=== PATIENT | male | born 1960 | race Caucasian/White ===

== ENCOUNTER 2017-02-22 17:46 | Emergency (ER) | payer MEDICARE, MEDICAID ==
--- NOTE | 2017-02-28 17:58 | ER ---
ADMIT: 02/22/2017 RM/LOC: [facility] MR#: [id number] [id number] [place], [place] [address] [place], [place] [id number] Emergency Room Report SEX: M AGE: 56 : 1960 CORRECTED: 02/24/2017 1115 DJS DATE: 02/22/2017 CHIEF COMPLAINT: Shortness of breath. HISTORY OF PRESENT ILLNESS: This is a 56-year-old male, who comes to us from [facility] with reports that he has increased confusion and weakness. Conversing with the patient, he states he is feeling fine. Denies any fever, chills, chest pain, cough, or leg swelling. Denies any recent illness. Does have a past history of diabetes, hypertension, stroke, history of aspiration pneumonia, chronically on tube feeds from this as well as anemia. He has a history of metabolic encephalopathy as well as schizophrenia. COURSE IN EMERGENCY ROOM: The patient was seen and examined. PHYSICAL EXAMINATION: VITAL SIGN: He is afebrile and nontoxic. GENERAL: In no acute distress. RESPIRATORY: He does have some decreased air movement. Prolonged expiration. No wheezes or rhonchi. HEART: Regular rate and rhythm. ABDOMEN: Soft and nontender. SKIN: Warm and dry. EXTREMITIES: Nontender. No pedal edema. NEUROLOGICAL: He is alert. He is disoriented secondary to schizophrenia and metabolic encephalopathy. LABORATORY DATA: I did get lab work on him today. White count 5.2, hemoglobin 10.5, hematocrit 31.5, and platelets 133. Sodium 145, potassium 4.2, BUN 18, glucose 136, creatinine 1.1. D-dimer nonreactive. BNP 396. Urine, no signs of ADMIT: 02/22/2017 RM/LOC: [facility] MR#: [id number] [address] [address] [place] [address] Emergency Room Report SEX: M AGE: 56 : 1960 infection. EKG, rate of 74. No ST, T, or Q-wave abnormalities. Chest x-ray shows no evidence of aspiration pneumonia. IMPRESSION: 1. Weakness. 2. Schizophrenia. 3. Metabolic encephalopathy. DISPOSITION: The patient was discharged back to [facility]. Resume orders, medications as prescribed. Follow up with Dr. Alvarado next week. ALICJA Leroy / Ty Trinidad MD / adrianl JOB #: [id number] CC: Ty Trinidad MD, Attending Physician James Alvarado MD, Family Physician CORRECTED: 02/24/2017 1115 DJS
== END 2017-02-22 20:24 | disposition home or self-care (01) ==
LOC: ER 17:46
DX: G93.41 Metabolic encephalopathy (principal); R53.1 Weakness; F20.9 Schizophrenia, unspecified; F17.210 Nicotine dependence, cigarettes, uncomplicated; E11.9 Type 2 diabetes mellitus without complications; I10 Essential (primary) hypertension; Z86.73 Personal history of transient ischemic attack (TIA), and cerebral infarction without residual deficits; Z88.1 Allergy status to other antibiotic agents; Z79.899 Other long term (current) drug therapy

== ENCOUNTER 2017-02-23 17:51 | Emergency (ER) | payer MEDICARE, MEDICAID ==
--- NOTE | 2017-02-26 12:45 | ER ---
ADMIT: 02/23/2017 RM/LOC: ER [facility] MR#: [id number] [address] [address] [place] [address] Emergency Room Report SEX: M AGE: 56 : 1960 DATE: 02/23/2017 SUBJECTIVE: The patient is a 56-year-old male with a past medical history of CVA, lacunar infarct, schizoaffective disorder, diabetes, and hypertension, who came to the ER from [facility] because of ground level fall. There is no more history about loss of consciousness or how the incident happened. The patient has been in the ER before for other reasons. In the ER, when I saw the patient, he has stable vitals, but he was very somnolent. Fingerstick blood sugar was 115. There were some lacerations about one and a half inch near the left eyebrow without any depression. There is no raccoon eyes or Quintanilla sign, and the patient had normal extraocular movements. The patient is very drowsy. He follows command, but sometimes his speech does not make sense. I have no information about baseline of the patient, but per chart, his baseline is confused allegedly. Stat head CT of the brain did not show any acute changes, ammonia was 16. The patient had a sodium of 144, potassium of 4.1. White blood cell was 9.3 with hemoglobin of 11. On physical examination, the patient was in the ER and has stable vitals and was observed. The patient is already on multiple psychotherapeutic medications per chart. After being in the ER for an hour, the patient's drowsiness decreased substantially, and the patient is sitting in bed with open eyes and answering the questions. The patient is sitting in the bed and follows commands and is very compliant and answering just simple questions like the location of the pain, but could answer the complicated questions. No information about the baseline. After local anesthesia with lidocaine 1% and irrigation of the wound, the wound was explored, there were no foreign bodies. Wound is stellate about 105 inch and is irregular just into skin and mild subcutaneous tissue, and there is no jelly involvement. Wound was repaired superficially with Prolene 4.0 with multiple sutures successfully. The patient is awake and stable to be discharged to [facility] to be followed up by the primary doctor and nursing care facility as needed. The patient was given a wound care handout and advised to return to the ER in 5 to 7 days for removal of the sutures. Clement Myers MD/ hannah JOB #: [id number] CC: Cain Burrows MD, Attending Physician UNKNOWN, Family Physician
== END 2017-02-23 21:10 | disposition home or self-care (01) ==
LOC: ER 17:51
PROC: 0HQ1XZZ Repair Face Skin, External Approach (ICD-10-PCS; principal; 2017-02-23)
DX: S01.112A Laceration without foreign body of left eyelid and periocular area, initial encounter (principal); F17.210 Nicotine dependence, cigarettes, uncomplicated; E11.9 Type 2 diabetes mellitus without complications; I10 Essential (primary) hypertension; Z86.73 Personal history of transient ischemic attack (TIA), and cerebral infarction without residual deficits; F25.9 Schizoaffective disorder, unspecified; Z86.718 Personal history of other venous thrombosis and embolism; Z79.899 Other long term (current) drug therapy; Z88.1 Allergy status to other antibiotic agents; W18.30XA Fall on same level, unspecified, initial encounter

== ENCOUNTER 2017-02-25 14:27 | Emergency (ER) | payer MEDICARE, MEDICAID ==
--- NOTE | 2017-03-15 15:51 | ER ---
ADMIT: 02/25/2017 RM/LOC: ER [facility] MR#: [id number] [address] [address] [place] [address] Emergency Room Report SEX: M AGE: 56 : 1960 DATE: 02/25/2017 This 56-year-old from [facility]. He suffers from metabolic encephalopathy, schizophrenia, and anemia sent by [facility] for change in mental status. Of note, the patient was seen in the Emergency Department on the of this month where he had extensive workup done, the results of which were unremarkable. The patient himself has no complaints other than he is angry for being sent here. See T-sheet for remainder of history and physical. Labs and studies were reviewed from his prior ER visit. CBC and CMP were repeated today. The patient is diagnosed with underlying metabolic encephalopathy. At the time of this dictation, we are planning on returning him to [facility]. Cain Burrows MD/ hannah JOB #: [id number] CC: Cain Burrows MD, Attending Physician UNKNOWN, Family Physician
== END 2017-02-25 17:30 | disposition home or self-care (01) ==
LOC: ER 14:27
DX: G93.41 Metabolic encephalopathy (principal); F20.9 Schizophrenia, unspecified

== ENCOUNTER 2017-02-27 16:47 | Emergency (ER) | payer MEDICARE, MEDICAID ==
--- NOTE | 2017-03-05 09:21 | ER ---
ADMIT: 02/27/2017 RM/LOC: ER [facility] MR#: [id number] [address] [address] [place] [address] Emergency Room Report SEX: M AGE: 56 : 1960 DATE: 02/27/2017 ADDENDUM: Please see my T-sheet for complete review of systems, past medical history, and physical exam. CHIEF COMPLAINT: Confusion. HISTORY OF PRESENT ILLNESS: Ty is a 56-year-old, resident at [facility], transferred here via ambulance for increased confusion and decreased responsiveness. Much of the history is obtained from previous records as well as [facility] transfer sheet. He has been seen multiple times in the ER for the past week for similar complaints. prison reporting he is increasingly confused, weak, unable to take care of himself, not eating or drinking. At present, the patient is confused. He follows commands; however, does not respond to questioning. He does have a past medical history for schizoaffective disorder and metabolic encephalopathy. No fevers. No trouble breathing. No nausea, vomiting, or abdominal pain. PAST MEDICAL HISTORY: Diabetes, hypertension, aspiration pneumonia. He does have a feeding tube secondary to this. Admits to a smoking history. No other drug or alcohol use per report. COURSE IN THE EMERGENCY ROOM: GENERAL: The patient was seen and examined. He is afebrile and nontoxic. No acute distress. He is alert; however, grossly disoriented to person, place, and time. He follows commands. He does answer some questions, primarily those relating to his personal history from the past, nothing at present. He does move all 4 extremities. There is no obvious facial palsy. He is not able to ambulate in the department tonight. However, he is able to readily pull himself up and assist for me to complete lung exam. He has quite a flat affect. He speaks; however, much of it is rambling and not making much sense. It is hard to determine this patient's baseline status given his chronic comorbidities of metabolic encephalopathy, schizoaffective disorder. HEENT: Normocephalic, atraumatic. Extraocular muscles intact. Pupils are equal and reactive. RESPIRATORY: Breath sounds are equal bilaterally. There are faint wheezes in the bases. HEART: Regular rate and rhythm. ABDOMEN: Soft and nontender. He does have a feeding tube in place. SKIN: Warm and dry. EXTREMITIES: Nontender. LABORATORY STUDIES: Today, white count 9.0, hemoglobin 16.5, hematocrit 46.4, platelets 108. Sodium 141, potassium 4.0, BUN 12, glucose 12.5, creatinine 1.1. Ammonia level 17, bilirubin 0.5, alkaline phosphatase 76, AST 47, ALT 21. Urine does show positive nitrite, 3+ leukocyte esterase, with 83 wbc's per high-power field and 1 rbc per high-power field consistent with acute urinary tract infection. He was given 0.5 L of normal saline as well as his first dose of Bactrim prior to being discharged back to [facility] for outpatient ADMIT: 02/27/2017 RM/LOC: ER [facility] MR#: [id number] [address] [place] [id number] [place] [address] Emergency Room Report SEX: M AGE: 56 : 1960 treatment for urinary tract infection. IMPRESSION: 1. Urinary tract infection. 2. Schizoaffective. 3. Metabolic encephalopathy. 4. Altered level of consciousness. DISPOSITION: The patient will be discharged back to [facility], start a course of oral antibiotics, Bactrim DS 1 tab p.o. b.i.d. per G-tube given his situation. Continue orders as written. Continue therapy. He does need to follow up with his primary care provider next week. Discharged back in stable condition. ALICJA Leroy / Parish Manzo MD / hannah JOB #: [id number] CC: Parish Manzo MD, Attending Physician UNKNOWN, Family Physician
== END 2017-02-27 21:10 | disposition home or self-care (01) ==
LOC: ER 16:47
DX: F25.9 Schizoaffective disorder, unspecified (principal); R41.0 Disorientation, unspecified; N39.0 Urinary tract infection, site not specified; G93.41 Metabolic encephalopathy; E11.9 Type 2 diabetes mellitus without complications; I10 Essential (primary) hypertension; J44.9 Chronic obstructive pulmonary disease, unspecified; Z88.1 Allergy status to other antibiotic agents

== ENCOUNTER → 2017-03-05 | Outpatient (CLI) | payer MEDICARE, MEDICAID | END | disposition home or self-care (01) | LOC: RAD.S 08:24 | DX: J96.90 Respiratory failure, unspecified, unspecified whether with hypoxia or hypercapnia (principal); J98.4 Other disorders of lung; J43.9 Emphysema, unspecified; R91.8 Other nonspecific abnormal finding of lung field ==